=== PATIENT | male | born 1945 | race Two or more races ===

== ENCOUNTER 2017-05-17 08:32 | Emergency (ER) | payer MEDICARE, OTHER ==
[2017-05-17 08:57] LABS: APPEARANCE,URINE CLEAR; BILIRUBIN,URINE NEGATIVE (NEGATIVE); GLUCOSE, URINE NEGATIVE (NEGATIVE); KETONES,URINE NEGATIVE (NEGATIVE); LEUKOCYTE ESTERASE,URINE SMALL (NEGATIVE); NITRITE,URINE NEGATIVE (NEGATIVE); PROTEIN,URINE 30 mg/dL (NEGATIVE); URINE SPECIFIC GRAVITY 1.021; UROBILINOGEN,URINE NEGATIVE mg/dL (<2.0)
[2017-05-17] MEDS ORDERED: ONDANSETRON HCL INJ/PF 4 MG/2 ML SDV IV ONE (09:12)
[2017-05-17] MEDS ORDERED: NORMAL SALINE 1000 ML 1,000 ML IV PRN (09:12)
[2017-05-17] MEDS ORDERED: MORPHINE SULFATE 10 MG/ML INJ IV ONE (09:13)
--- NOTE | 2017-05-17 09:15 | ER Document Report ---
ED Medical Screen (RME) - General Chief Complaint: Abdominal Pain Stated Complaint: ABDOMINAL PAIN Time Seen by Provider: 05/17/17 09:11 Notes: Patient presents with several days of severe left lower quadrant pain. He is also had tarry and bloody stools. Patient is on Xarelto and aspirin daily. He is on Xarelto due to some stents that were placed in his bilateral femoral veins secondary to an aneurysm repair. Patient recently had a colonoscopy the last week of March which showed a precancerous polyp as well as gastritis, duodenitis, and esophagitis. Patient also has a history of anemia and is currently seeing a hand dry cleaner. TRAVEL OUTSIDE OF THE [place] IN LAST 30 DAYS: No - Related Data Allergies/Adverse Reactions: ciprofloxacin [From Cipro] Allergy (Verified 05/17/17 08:37) metformin Allergy (Verified 05/17/17 08:37) sitagliptin [From Janumet] Allergy (Verified 05/17/17 08:37) Past Medical History - Past Medical History Cardiac Medical History: Reports: Hx Hypertension Endocrine Medical History: Reports: Hx Diabetes Mellitus Type 2 Renal/ Medical History: Denies: Hx Peritoneal Dialysis Past Surgical History: Reports: Hx Abdominal Surgery - triple A Physical Exam - Vital signs Vitals: Temp Pulse Resp BP Pulse Ox 98.4 F 110 H 16 108/58 L 98 05/17/17 08:34 05/17/17 08:34 05/17/17 08:34 05/17/17 08:34 05/17/17 08:34 Course - Vital Signs Vital signs: Temp Pulse Resp BP Pulse Ox 98.4 F 110 H 16 108/58 L 98 05/17/17 08:34 05/17/17 08:34 05/17/17 08:34 05/17/17 08:34 05/17/17 08:34 - Laboratory Laboratory results interpreted by me: 05/17/17 08:32 Urine Protein 30 H Ur Leukocyte Esterase SMALL H
[2017-05-17 09:35] LABS: ABSOLUTE BASOPHILS # (AUTO) 0.1 10^3/uL (0.0-0.2); ABSOLUTE EOSINOPHILS # (AUTO) 0.6 10^3/uL (0.0-0.6); ABSOLUTE LYMPHOCYTES (AUTO) 2.2 10^3/uL (0.5-4.7); ABSOLUTE MONOCYTES (AUTO) 1.2 10^3/uL (0.1-1.4); ABSOLUTE NEUT (AUTO) 11.3 10^3/uL (1.7-8.2); BASOPHILS % (AUTO) 0.6 % (0-2); EOSINOPHILS % (AUTO) 4.2 % (0-6); HEMATOCRIT 39.4 % (37.9-51.0); HEMOGLOBIN 12.9 g/dL (13.5-17.0); HGB HCT DIFFERENCE -0.7; MEAN CORPUSCULAR HEMOGLOBIN 26.2 pg (27.0-33.4); MEAN CORPUSCULAR HGB CONC 32.7 g/dL (32.0-36.0); MEAN CORPUSCULAR VOLUME 80 fl (80-97); MONOCYTES % (AUTO) 7.8 % (3-13); RED BLOOD COUNT 4.92 10^6/uL (4.35-5.55); RED CELL DISTRIBUTION WIDTH 16.4 % (11.5-14.0); SEGMENTED NEUTROPHILS % (AUTO) 73.4 % (42-78); WHITE BLOOD COUNT 15.4 10^3/uL (4.0-10.5)
[2017-05-17 09:54] LABS: ALANINE AMINOTRANSFERASE 17 U/L (21-72); ALBUMIN 4.3 g/dL (3.5-5.0); ALKALINE PHOSPHATASE 75 U/L (38-126); ANION GAP 15 (5-19); ASPARTATE AMINO TRANSFERASE 14 U/L (17-59); BILIRUBIN,DIRECT 0.6 mg/dL (0.0-0.4); BILIRUBIN,TOTAL 0.6 mg/dL (0.2-1.3); BLOOD UREA NITROGEN 30 mg/dL (7-20); CALCIUM 10.1 mg/dL (8.4-10.2); CARBON DIOXIDE 25 mmol/L (22-30); CHLORIDE 101 mmol/L (98-107); CREATININE RESULT 1.53 mg/dL (0.52-1.25); GLUCOSE 150 mg/dL (75-110); LIPASE 91.2 U/L (23-300); POTASSIUM 4.9 mmol/L (3.6-5.0); SODIUM 140.9 mmol/L (137-145); TOTAL PROTEIN 7.6 g/dL (6.3-8.2)
--- NOTE | 2017-05-17 10:00 | ER Document Report ---
ED GI/ - General Chief Complaint: Abdominal Pain Stated Complaint: ABDOMINAL PAIN Time Seen by Provider: 05/17/17 09:11 Mode of Arrival: Ambulatory Information source: Patient Notes: Patient is a 71-year-old male with hypertension, diabetes with a history of 3 umbilical hernia repairs and recent AAA repair and femoral to femoral bypass in January and March of this year. He presents to the ER today for left lower quadrant pain 3 days and dark urine with dark stools. He has no history of kidney disease. He denies any dysuria, diarrhea, constipation. He states he has been having small soft bowel movements. He denies any fever chills, nausea or vomiting. He admits that his periumbilical hernia is starting to come back that he can feel. He had all of his surgeries at [facility]. His last umbilical repair was 25 years ago. He is on blood thinners. TRAVEL OUTSIDE OF THE [place] IN LAST 30 DAYS: No - Related Data Allergies/Adverse Reactions: ciprofloxacin [From Cipro] Allergy (Verified 05/17/17 10:08) metformin Allergy (Verified 05/17/17 10:08) sitagliptin [From Janumet] Allergy (Verified 05/17/17 10:08) Home Medications: Current Home Medications Aspirin [Aspirin EC] 81 mg PO DAILY 05/17/17 [History] Bismuth/Metronid/Tetracycline [Pylera Capsule] 3 cap PO QID 05/17/17 [History] Fluconazole 200 mg PO DAILY 05/17/17 [History] Gemfibrozil 600 mg PO BID 05/17/17 [History] Glipizide 10 mg PO BID 05/17/17 [History] Lisinopril [Zestril] 2.5 mg PO DAILY 05/17/17 [History] Pantoprazole Sodium 40 mg PO BID 05/17/17 [History] Rivaroxaban [Xarelto] 20 mg PO DAILY 05/17/17 [History] Past Medical History - General Information source: Patient - Social History Smoking Status: Current Every Day Smoker Family History: Reviewed & Not Pertinent - Past Medical History Cardiac Medical History: Reports: Hx Hypertension Endocrine Medical History: Reports: Hx Diabetes Mellitus Type 2 Renal/ Medical History: Denies: Hx Peritoneal Dialysis Past Surgical History: Reports: Hx Abdominal Surgery - triple A Review of Systems - Review of Systems Constitutional: No symptoms reported EENT: No symptoms reported Cardiovascular: No symptoms reported Respiratory: No symptoms reported Gastrointestinal: See HPI Genitourinary: No symptoms reported Male Genitourinary: No symptoms reported Musculoskeletal: No symptoms reported Skin: No symptoms reported Hematologic/Lymphatic: No symptoms reported Neurological/Psychological: No symptoms reported Physical Exam - Vital signs Vitals: Temp Pulse Resp BP Pulse Ox 98.4 F 110 H 16 108/58 L 98 05/17/17 08:34 05/17/17 08:34 05/17/17 08:34 05/17/17 08:34 05/17/17 08:34 - Notes Notes: PHYSICAL EXAMINATION: GENERAL: Appears uncomfortable, but in no acute distress. HEAD: Atraumatic, normocephalic. EYES: Pupils equal round and reactive to light, extraocular movements intact, sclera anicteric, conjunctiva are normal. NECK: Normal range of motion, supple without lymphadenopathy LUNGS: CTAB and equal. No wheezes rales or rhonchi. HEART: Regular rate and rhythm without murmurs ABDOMEN: Soft, exquisite left lower quadrant tenderness. No guarding, no rebound BACK: no vertebral tenderness, normal ROM GI/: no CVA tenderness rectal: normal tone, no bleeding EXTREMITIES: Normal range of motion, no pitting edema. No cyanosis. NEUROLOGICAL: Cranial nerves grossly intact. Normal sensory/motor exams. PSYCH: Normal mood, normal affect. SKIN: Warm, Dry, normal turgor, no rashes or lesions noted Course - Re-evaluation Re-evalutation: 05/17/17 11:47 CAT scan reports very large loop of small bowel in the left lower quadrant with evidence of possible perforation. Dr. Johnston came down to evaluate the pt and states due to AAA graft, he defers for transfer to a facility that has vascular on at this time. 05/17/17 12:20 ED to ED transfer at this time to [facility], Dr. Looney is accepting physician for surgery at [facility]. 05/17/17 14:27 pt stable for discharge, transport here to take him now. declines pain medication. - Vital Signs Vital signs: Temp Pulse Resp BP Pulse Ox 97.8 F 88 16 98/45 L 96 05/17/17 14:13 05/17/17 14:13 05/17/17 14:13 05/17/17 14:13 05/17/17 14:13 - Laboratory Result Diagrams: 05/17/17 09:13 05/17/17 09:13 Laboratory results interpreted by me: 05/17/17 05/17/17 05/17/17 08:32 09:13 09:13 WBC 15.4 H Hgb 12.9 L MCH 26.2 L RDW 16.4 H Absolute Neutrophils 11.3 H BUN 30 H Creatinine 1.53 H Est GFR ( Amer) 54 L Est GFR (Non-Af Amer) 45 L Glucose 150 H Direct Bilirubin 0.6 H AST 14 L ALT 17 L Urine Protein 30 H Ur Leukocyte Esterase SMALL H Discharge - Discharge Clinical Impression: Hernia of small intestine, Nontraumatic perforation of small intestine Condition: Stable Disposition: [facility] Referrals: PEDRO BLUE FNP [Primary Care Provider] - Follow up as needed
--- NOTE | 2017-05-17 11:14 | RADIOLOGY REPORT (SQ) ---
EXAM DESCRIPTION: CT ABD/PELVIS WITH IV ONLY COMPLETED DATE/TIME: 05/17/2017 10:26 am REASON FOR STUDY: LLQ pain COMPARISON: Aortic ultrasound dated November 2015 TECHNIQUE: CT scan of the abdomen and pelvis performed using helical scanning technique with dynamic intravenous contrast injection. No oral contrast. Images reviewed with lung, soft tissue, and bone windows. Reconstructed coronal and sagittal MPR images reviewed. Delayed images for evaluation of the urinary system also acquired. All images stored on PACS. All CT scanners at this facility use dose modulation, iterative reconstruction, and/or weight based d osing when appropriate to reduce radiation dose to as low as reasonably achievable (ALARA). [facility]: Dose Right [facility]: CareDose [facility]: Dose Right [facility]: Teradose 4D [facility]: [employer] CONTRAST TYPE AND DOSE: contrast/concentration: Isovue 370.00 mg/ml; Total Contrast Delivered: 100.0 ml; Total Saline Delivered: 70.0 ml RENAL FUNCTION: Creatinine 1.5 RADIATION DOSE: Up-to-date CT equipment and radiation dose reduction techniques were employed. CTDIv ol: 8.6 - 12.1 mGy. DLP: 1137 mGy-cm.. LIMITATIONS: None. FINDINGS: LOWER CHEST: No significant findings. No nodules or infiltrates. Chronic appearing inters titial changes are identified. LIVER: Normal size. No masses. No dilated ducts. Couple tiny hepatic calcifications are identified. SPLEEN: Normal size. No focal lesions. PANCREAS: No masses. No significant calcifications. No adjacent inflammation or peripancreatic fluid collections. Pancreatic duct not dilated. GALLBLADDER: No identified stones by CT criteria. No inflammatory changes to suggest cholecystitis. ADRENAL GLANDS: No significant masses or asymmetry. RIGHT KIDNEY AND URETER: No solid masses. No significant calcifications. No hydronephrosis or hyd roureter. LEFT KIDNEY AND URETER: No solid masses. No significant calcifications. No hydronephrosis or hydr oureter. 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 The [place] aorta component measures 5 cm in diameter. The right common iliac component measure s 3.4 cm. The left common iliac component measured 2.8 cm. No evidence for an endograft leak is see n. There is patency of the aortic and left common iliac component. There is occlusion of the right common iliac component. Right external iliac stent is identified. A fem-fem graft is identified at the level of the lower pelvis which is patent. Renal arteries, SMA, celiac without stenosis. RETROPERITONEUM: No retroperitoneal adenopathy, hemorrhage or masses. BOWEL AND PERITONEAL CAVITY: There is thickening of the fletcher of a fairly long segment of small bowel in the left lower quadrant. There is an adjacent fluid component with an air-fluid level and there are edematous or inflammatory changes in the adjacent mesenteric fat. On a couple of the images ther e appears to be continuation of the small bowel lumen herniating into this fluid component. The diff erential possibilities would include a small bowel neoplasm with an associated perforation and absces s collection. Other etiologies would include an infected diverticulum or duplication cyst with absce ss formation. Clinical correlation is recommended. APPENDIX: Normal. PELVIS: No mass. No free fluid. Normal bladder. ABDOMINAL WALL: Patient is status post ventral hernia repair in the upper abdomen with a small recurr ent hernia being identified containing bowel without obstruction. BONES: No significant or acute findings. OTHER: No other significant finding. IMPRESSION: There is thickening of the fletcher of a fairly long segment of small bowel in the left low er quadrant as noted above. There is an adjacent fluid component with an air-fluid level and there a re edematous or inflammatory changes in the adjacent mesenteric fat. On a couple of the images there appears to be continuation of the small bowel lumen herniating into this fluid component. The diffe rential possibilities would include a small bowel neoplasm with an associated perforation and abscess collection. Other etiologies would include an infected diverticulum or duplication cyst with absces s formation. Clinical correlation is recommended. 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 No endograft leak is identified. There is occlusion of the right iliac c omponent of the graft. A fem-fem graft is identified as noted above. Other findings as noted above TECHNICAL DOCUMENTATION: JOB ID: [id number] Quality ID # [id number]: Final reports with documentation of one or more dose reduction techniques (e.g., Au tomated exposure control, adjustment of the mA and/or kV according to patient size, use of iterative reconstruction technique) 2010 [email or web address]- All Rights Reserved
--- NOTE | 2017-05-17 14:03 | EKG REPORT ---
SEVERITY:- ABNORMAL ECG - SINUS RHYTHM LEFT AXIS DEVIATION LEFT VENTRICULAR HYPERTROPHY : Confirmed by: Dharmesh Kendall MD 17-May-2017 14:02:21
[2017-05-17 14:14] VITALS: BP 98/45
== END 2017-05-17 14:10 | disposition short-term general hospital (02) ==
LOC: ER 08:32
DX: K46.9 Unspecified abdominal hernia without obstruction or gangrene (principal); R10.9 Unspecified abdominal pain; I10 Essential (primary) hypertension; E11.9 Type 2 diabetes mellitus without complications; Z98.890 Other specified postprocedural states; Z79.899 Other long term (current) drug therapy; F17.200 Nicotine dependence, unspecified, uncomplicated
CPT/HCPCS: 93005; 99285; 96361; 96374; 96375; 36415; 83690; 85025; 82272; 80053; 81001; 74177; 93010; J2270; J2405; J7030

== ENCOUNTER → 2017-07-11 | Outpatient (CLI) | payer MEDICARE, OTHER ==
--- NOTE | 2017-07-14 09:24 | PULMONARY FUNCTION TEST ---
DATE OF SERVICE: 07/11/2017 THE VITAL CAPACITY IS NORMAL. THE EXPIRATORY FLOW RATES ARE NORMAL. THE FEV1/VC IS 83%, PREDICTED: 79% LUNG VOLUMES BY NITROGEN WASH OUT METHOD SHOW: TLC IS 95% OF PREDICTED FRC IS 99% OF PREDICTED RV IS 88% OF PREDICTED THE DLCO IS 17.7, 93% OF PREDICTED. THE RV/TLC RATIO IS 39% PREDICTED 41% IMPRESSION: THE INSPIRATORY LIMB OF THE F-V LOOP WAS POORLY PERFORMED. THE EXPIRATORY SPIROGRAM, LUNG VOLUMES AND DIFFUSING CAPACITY ARE ALL NORMAL. CC: ARNIE MARTINEZ MD > [facility]
== END ==
LOC: RT 12:21
PROVIDERS: ATTEND Internal Medicine Pulmonary Disease
DX: R06.00 Dyspnea, unspecified (principal); J44.9 Chronic obstructive pulmonary disease, unspecified; I73.9 Peripheral vascular disease, unspecified; E11.9 Type 2 diabetes mellitus without complications
CPT/HCPCS: 94010; 94727; 94729